=== PATIENT | male | born 1965 | race Caucasian/White ===

== ENCOUNTER 2016-12-24 19:31 | Emergency (ER) | payer OTHER ==
[~2016-12-24] VITALS: Ht 195.6 cm; Wt 100.0 kg
[2016-12-24 19:36] VITALS: TEMP 98.6
[2016-12-24 19:50] LABS: BASO # 0.1 (0.0-0.2); BASO % 0.9 % (0.0-2.0); EOS # 0.1 (0.0-0.7); EOS % 0.8 % (0-4.0); GRAN # 5.8 (1.4-6.5); HEMATOCRIT 48.3 % (42.0-52.0); HEMOGLOBIN 16.1 g/dl (13.5-18.0); LYMPH # 2.5 (1.2-3.4); LYMPH % 27.1 % (20.0-51.0); MEAN CELL VOLUME 84 fl (80.0-100.0); MEAN CORPUSCULAR HEMOGLOBIN 28 pg (27.0-31.0); MEAN CORPUSCULAR HGB CONC 33 g/dl (33.0-37.0); MEAN PLATELET VOLUME 9.3 fl (7.4-10.4); MONO # 0.8 (0.1-0.6); PLATELET COUNT 311 K/mm3 (130-400); RED BLOOD COUNT 5.74 M/mm3 (4.20-5.60); REDCELL DISTRIBUTION WIDTH-CV 13.2 % (11.5-14.5); WHITE BLOOD COUNT 9.3 K/mm3 (4.8-10.8)
[2016-12-24 20:03] LABS: ADJUSTED CALCIUM 8.9 mg/dL (8.4-10.2); ALANINE AMINOTRANSFERASE 24 U/L (21-72); ALBUMIN 4.3 gm/dL (3.5-5.0); ALKALINE PHOSPHATASE 64 U/L (50-136); ANION GAP 14 mmol/L (7-16); BILIRUBIN,TOTAL 1.9 mg/dL (0.0-1.0); BLOOD UREA NITROGEN 11 mg/dL (9-20); C-REACTIVE PROTEIN < 0.5 mg/dL (0.0-0.9); CALCIUM 9.1 mg/dL (8.4-10.2); CARBON DIOXIDE 22 mmol/L (22-30); CHLORIDE 104 mmol/L (98-107); CREATININE, serum 0.89 mg/dL (0.66-1.25); GLUCOSE 88 mg/dL (74-106); LIPASE 61 U/L (23-300); POTASSIUM 3.7 mmol/L (3.4-5.0); SODIUM 140 mmol/L (137-145); TOTAL PROTEIN 7.7 gm/dL (6.4-8.2)
[2016-12-24 20:09] LABS: ERYTHROCYTE SEDIMENTATION RATE 1 mm/hr (0-30)
[2016-12-24 20:12] LABS: B-TYPE NATRIURETIC PEPTIDE 74 pg/mL (0-125)
[2016-12-24 20:16] LABS: TROPONIN-I < 0.012 ng/mL (0.000-0.034)
[2016-12-24 20:36] VITALS: BP 132/76; PULSE 94
== END 2016-12-24 21:05 | disposition home or self-care (01) ==
LOC: COL.ER 19:31
PROVIDERS: Emergency Medicine
DX: R07.9 Chest pain, unspecified (principal); R06.00 Dyspnea, unspecified
CPT/HCPCS: J1885; J7030

== ENCOUNTER 2021-09-26 21:20 | Inpatient (IN) | payer BC ==
[~2021-09-26] VITALS: Ht 195.6 cm; Wt 99.2 kg
[2021-09-26 22:27] LABS: BASO % 0.1 % (0.0-2.0); EOS % 0.4 % (0.0-4.0); GRAN # 5.1 K/mm3 (1.4-6.5); GRAN % 75.6 % (42.2-75.2); HEMATOCRIT 48.6 % (42.0-52.0); HEMOGLOBIN 16.2 g/dl (13.5-18.0); LYMPH % 14.6 % (20.0-51.0); MEAN CELL VOLUME 84 fl (80.0-100.0); MEAN CORPUSCULAR HEMOGLOBIN 28 pg (27-31); MEAN CORPUSCULAR HGB CONC 33 g/dl (33.0-37.0); MEAN PLATELET VOLUME 9.7 fl (7.4-10.4); MONO # 0.6 K/mm3 (0.1-0.6); MONO % 8.6 % (1.7-9.3); PLATELET COUNT 321 K/mm3 (130-400); RED BLOOD COUNT 5.76 M/mm3 (4.20-5.60); REDCELL DISTRIBUTION WIDTH-CV 13.1 % (11.5-14.5)
[2021-09-26 22:34] LABS: INR 1.2 (0.8-3.0); PROTHROMBIN TIME 12.8 SECONDS (9.7-12.8)
[2021-09-26 22:44] LABS: BILIRUBIN,TOTAL 0.9 mg/dL (0.2-1.2); CALCIUM 8.2 mg/dL (8.4-10.2); CREATININE, serum 0.9 mg/dL (0.72-1.25); TOTAL PROTEIN 7.5 gm/dL (6.2-8.1)
[2021-09-27 02:13] VITALS: BP 112/75; PULSE 87; TEMP 98
[2021-09-27 04:41] VITALS: BP 124/87; PULSE 78; TEMP 97.5
[2021-09-27 07:50] LABS: CALCIUM 8.1 mg/dL (8.4-10.2); CREATININE, serum 0.73 mg/dL (0.72-1.25); POTASSIUM 4.5 mmol/L (3.5-4.5)
[2021-09-27 07:51] LABS: HEMATOCRIT 43.3 % (42.0-52.0); HEMOGLOBIN 14.7 g/dl (13.5-18.0); MEAN CELL VOLUME 84 fl (80.0-100.0); MEAN CORPUSCULAR HEMOGLOBIN 28 pg (27-31); MEAN CORPUSCULAR HGB CONC 34 g/dl (33.0-37.0); PLATELET COUNT 308 K/mm3 (130-400); RED BLOOD COUNT 5.18 M/mm3 (4.20-5.60)
[2021-09-27 08:09] VITALS: BP 120/75; PULSE 54; TEMP 97.7
[2021-09-27 09:15] LABS: BAND 12 % (0-10); LYMPHOCYTE 9 % (20.0-51.0); NEUTROPHILS 78 % (42.0-75.2); PLATELET ESTIMATE NORMAL (NORMAL)
--- NOTE | 2021-09-27 10:18 | NUR ---
PT RESTING IN BED. MORNING MEDICATIONS GIVEN. SHIFT ASSESSMENT COMPLETED. PT IS FEELING FATIGUED. REQUIRING 6L O2 VIA NC. DENIES ANY PAIN. R FOREARM IV D/C DUE TO INFILTRATION. WILL CONTINUE TO MONITOR.
[2021-09-27 12:10] VITALS: BP 116/77; PULSE 89; TEMP 97.6
--- NOTE | 2021-09-27 15:44 | NUR ---
The patient is COVID positive. SW contacted the patient to discuss discharge plan. The patient lives alone in [place]. He states that his son, Andrea Carrillo, stays with him when he is in-between jobs. He reports independence with ADLs and wade not have any DME. The patient's PCP is Dr. Jayla Alves and he receives his medications from [facility]. He reports no difficulties obtaining his meds. The patient does not have a DPOA-HC and he was not interested in completing one while here. The patient reports that he is not and that he has two children: Andrea and Zari Baxter. SW informed him how his children are his next of kin. The patient verbalized understanding. He reports that he does not have their numbers memorized and that his phone is right now, so he cannot obtain their numbers. The patient plans on returning home upon discharge. He is currently on 7 liters of oxygen. SW to continue to monitor. NICKI collaborated with the patient's RN and obtained a phone bellows charger assembler. The patient's RN to provide him with the bellows charger assembler, so that we can then obtain his children's phone numbers. *Discharge plan: home*
[2021-09-27 15:56] VITALS: BP 125/85; PULSE 92; TEMP 97.4
--- NOTE | 2021-09-27 20:30 | NUR ---
Initial shift assessment done- denies pain, denies SOB at rest, o2 sats 89-90% on 7L/high flow--was increased by respiratory to 10 L/high flow-sats 92%.tele on. No requests.
[2021-09-27 21:07] VITALS: BP 128/76; PULSE 93; TEMP 98
[2021-09-28 00:18] VITALS: BP 130/76; PULSE 82; TEMP 97.9
[2021-09-28 04:22] VITALS: BP 132/77; PULSE 76; TEMP 98.8
--- NOTE | 2021-09-28 04:27 | NUR ---
Resting, o2 sats now 95% on the 10L/nc high flow, denies pain
[2021-09-28 07:57] VITALS: BP 122/70; PULSE 81; TEMP 98.5
[2021-09-28 08:07] LABS: BASO % 0.2 % (0.0-2.0); GRAN # 7.9 K/mm3 (1.4-6.5); GRAN % 76.9 % (42.2-75.2); HEMATOCRIT 43.2 % (42.0-52.0); HEMOGLOBIN 14.4 g/dl (13.5-18.0); LYMPH # 1.1 K/mm3 (1.2-3.4); LYMPH % 11.1 % (20.0-51.0); MEAN CELL VOLUME 84 fl (80.0-100.0); MEAN CORPUSCULAR HEMOGLOBIN 28 pg (27-31); MEAN CORPUSCULAR HGB CONC 33 g/dl (33.0-37.0); MONO # 1.1 K/mm3 (0.1-0.6); MONO % 10.6 % (1.7-9.3); PLATELET COUNT 364 K/mm3 (130-400); RED BLOOD COUNT 5.15 M/mm3 (4.20-5.60); REDCELL DISTRIBUTION WIDTH-CV 13.2 % (11.5-14.5)
[2021-09-28 08:22] LABS: CALCIUM 8.2 mg/dL (8.4-10.2); CREATININE, serum 0.75 mg/dL (0.72-1.25); POTASSIUM 4.3 mmol/L (3.5-4.5)
--- NOTE | 2021-09-28 09:08 | NUR ---
PT UP TO THE BATHHROOM AND VERY SOB WHEN RETURNING TO BED. CURRENTLY ON 9L VIA NC. DENIES ANY PAIN, NAUSEA, OR VOMITING OVER NIGHT. MORNING MEDICATIONS GIVEN. SHIFT ASSESSMENT COMPLETED. WILL CONTINUE TO MONITOR.
--- NOTE | 2021-09-28 10:07 | NUR ---
The patient's oxygen needs increased to 8-10 liters. SW contacted the patient and obtained his children's phone numbers. Andrea Lewis": [phone] Zari: [phone]
[2021-09-28 12:00] VITALS: BP 112/70; PULSE 85; TEMP 97.7
[2021-09-28 16:00] VITALS: BP 119/79; PULSE 78; TEMP 97.8
[2021-09-28 19:52] VITALS: BP 119/70; PULSE 78; TEMP 97.9
--- NOTE | 2021-09-28 20:00 | NUR ---
PATIENT IS A&O. VSS ON TELE. 02 AT 8L PER NC TO KEEP SATS IN LOW 90'S. A&P LUNG BASES DEMINISHED. NOTED SOME DYSPNEA ON EXERTION. PATIENT IS INDEPENDENT IN ROOM. NO C/O PAIN OR NAUSEA. RIGHT FORARM IV TO INT. HEAD TO TOE ASSESSMENT COMPLETE. PM MEDS GIVEN. NO OTHER NEEDS AT THIS TIME. CALL LIGHT IN REACH.
[2021-09-29 00:14] VITALS: BP 120/85; PULSE 82; TEMP 98
[2021-09-29 04:46] VITALS: BP 124/75; PULSE 95; TEMP 98.6
[2021-09-29 08:00] VITALS: BP 123/79; PULSE 73; TEMP 97.5
--- NOTE | 2021-09-29 09:12 | NUR ---
PT RESTING IN BED. MORNING MEDICATIONS GIVEN. SHIFT ASSESSMENT COMPLETED. CURRENTLY ON 4L VIA NC. DENIES ANY PAIN OR NEEDS. EAGER TO GO HOME. WILL CONTINUE TO MONITOR.
[2021-09-29 11:59] VITALS: BP 112/69; PULSE 85; TEMP 97.7
[2021-09-29 16:00] VITALS: BP 123/79; PULSE 87
--- NOTE | 2021-09-29 17:05 | NUR ---
Report recieved from STANISLAW Gutierres. Patient currently requiring 4L of O2 via nasal cannula. Denies any pain, discomfort, SOA, or further needs at this time. VSS. Patient A&O. Call light in reach.
[2021-09-29 20:04] VITALS: BP 106/67; PULSE 76; TEMP 98.4
--- NOTE | 2021-09-29 20:30 | NUR ---
Initial shift assessment done-denies pain, states feeling better, o2 now at 3L/nc, Tele on, Up in room on own- does not want any snacks etc, states he is not eating great . VSS
[2021-09-30] VITALS (7 sets, daily range): BP systolic 101–131; BP diastolic 63–74; PULSE 67–95; TEMP 97.7–98.3
--- NOTE | 2021-09-30 05:21 | NUR ---
Quiet night- no requests, VSS, o2 at 3L/nc with sats 94%
[2021-09-30 06:44] LABS: HEMATOCRIT 41.8 % (42.0-52.0); HEMOGLOBIN 13.6 g/dl (13.5-18.0); MEAN CELL VOLUME 87 fl (80.0-100.0); MEAN CORPUSCULAR HEMOGLOBIN 28 pg (27-31); MEAN CORPUSCULAR HGB CONC 33 g/dl (33.0-37.0); MEAN PLATELET VOLUME 9.7 fl (7.4-10.4); PLATELET COUNT 417 K/mm3 (130-400); RED BLOOD COUNT 4.82 M/mm3 (4.20-5.60); REDCELL DISTRIBUTION WIDTH-CV 13.3 % (11.5-14.5)
[2021-09-30 07:08] LABS: CREATININE, serum 0.76 mg/dL (0.72-1.25); POTASSIUM 3.6 mmol/L (3.5-4.5)
[2021-09-30 07:49] LABS: LYMPHOCYTE 11 % (20.0-51.0); NEUTROPHILS 84 % (42.0-75.2); PLATELET ESTIMATE NORMAL (NORMAL)
--- NOTE | 2021-09-30 10:46 | NUR ---
Pt. progressing w/ plan of care. Pt. reports feeling better today. Pt. has beeen OOB to ambulate in his room independently. Pt. gets OOB and sits in the chair off and on as well. Plan for pt. to stay in hospital for today. IV doxycycline infusing. New IV to left wrist placed and IV to R forearm removed, site was red. Site to R forearm now c/d/i. Plan for pt. to receive remdesivir this afternoon. Needs addressed, call light in reach.
--- NOTE | 2021-09-30 15:16 | NUR ---
Pt. progressing w/ plan of care. Pt. is on 4L O2 NC. Pt. has been ambulatory in the room. Pt. has been coughing and deep breathing. Oral care encouraged. Pt. agreeable w/ plan. Pt. denies needs at this time, call light and belongings in reach.
--- NOTE | 2021-10-01 01:28 | NUR ---
ASSESSMENT COMPLETE FOR THIS SHIFT. PT COOPERATIVE WITH CARES. PT RESTING IN BED WATCHING TV. PT DENIES PAIN, PALPITATIONS, SOB OR DIZZINESS. PT STATES HE IS READY TO GET OUT OF THIS PLACE. RT TITRATED PT DOWN TO RA AT REST AND 3L WITH AMBULATION. PT STATS AT 92-95%. PT STATES HE HAS NO OTHER NEEDS AT THIS TIME. CALL LIGHT WITHIN REACH.
[2021-10-01 04:33] VITALS: BP 119/76; PULSE 70; TEMP 97.6
[2021-10-01 05:37] LABS: HEMATOCRIT 41.9 % (42.0-52.0); HEMOGLOBIN 13.9 g/dl (13.5-18.0); MEAN CELL VOLUME 86 fl (80.0-100.0); MEAN CORPUSCULAR HEMOGLOBIN 28 pg (27-31); MEAN CORPUSCULAR HGB CONC 33 g/dl (33.0-37.0); MEAN PLATELET VOLUME 9.6 fl (7.4-10.4); PLATELET COUNT 449 K/mm3 (130-400); REDCELL DISTRIBUTION WIDTH-CV 13.2 % (11.5-14.5)
[2021-10-01 06:00] LABS: CALCIUM 8.2 mg/dL (8.4-10.2); CREATININE, serum 0.67 mg/dL (0.72-1.25); POTASSIUM 4.1 mmol/L (3.5-4.5)
[2021-10-01 06:22] LABS: LYMPHOCYTE 12 % (20.0-51.0); MYELOCYTE 1 % (0-0); NEUTROPHILS 81 % (42.0-75.2)
[2021-10-01 06:23] LABS: MICROCYTOSIS 1+; PLATELET ESTIMATE INCREASED (NORMAL)
--- NOTE | 2021-10-01 07:02 | NUR ---
Report received from STANISLAW Perez. This RN checked on pt. and he is requesting something to drink. Pt. denies further issues at this time. Call light and belongings in reach.
[2021-10-01 07:18] VITALS: BP 124/77; PULSE 75; TEMP 98.4
--- NOTE | 2021-10-01 07:24 | NUR ---
Pt. progressing w/ plan of care. Assessment complete. Needs addressed, call light and belongings in reach.
[2021-10-01 11:54] VITALS: BP 109/70; PULSE 93; TEMP 98
[2021-10-01] MEDS ORDERED: DECADRON6 MG PO (14:57)
[2021-10-01] MEDS ORDERED: PROTONIX 40MG T40 MG PO (14:58)
[2021-10-01 16:07] VITALS: BP 107/76; PULSE 94; TEMP 98.2
--- NOTE | 2021-10-01 17:04 | NUR ---
Last ordered dose of remdesivir given this afternoon. Plan for pt.'s son Jalil to receive a call from the oxygen supply company so pt. can have supplemental O2 PRN at home upon discharge. Tele removed. Call light and belongings in reach. This RN requested pt.'s son Jalil to call her back when he hears from the oxygen company. After this RN hears back from pt.'s son, this RN will go over pt.'s discharge paperwork.
--- NOTE | 2021-10-01 17:45 | NUR ---
IV removed. Discharge paperwork reviewed with patient. Pt.'s son was able to get oxygen and he picked up the patient to be discharged home. Pt. denies any questions. Pt. left floor via wheelchair w/ this RN.
== END 2021-10-01 15:40 | disposition home or self-care (01) | DRG 177 ==
LOC: COL.ER 21:20 → MEDICAL 23:08
PROVIDERS: Family Medicine; Physician Assistant; Student in an Organized Health Care Education/Training Program; ADMIT Internal Medicine
PROC: XW033E5 Introduction of Remdesivir Anti-infective into Peripheral Vein, Percutaneous Approach, New Technology Group 5 (ICD-10-PCS; principal; 2021-09-26)
PROC: 5A0945A Assistance with Respiratory Ventilation, 24-96 Consecutive Hours, High Flow/Velocity Cannula (ICD-10-PCS; 2021-09-27)
DX: U07.1 COVID-19 (principal); J12.82 Pneumonia due to coronavirus disease 2019; J96.01 Acute respiratory failure with hypoxia
CPT/HCPCS: 99223-AI; 99232-AI; 99233-AI; 99239; J0248; J0696; J1100; J1650; J7030; J7050; J8540